=== PATIENT | male | born 2000 | race Two or more races ===

== ENCOUNTER 2021-05-16 22:00 | Emergency (ER) | payer BC ==
--- NOTE | 2021-05-16 23:38 | EDM.PDOCBH ---
ED HPI GENERAL MEDICAL PROBLEM - General Chief Complaint: Behavioral/Psych Stated Complaint: MEDICAL CLEARANCE Time Seen by Provider: 05/16/21 23:15 Source of Information: Reports: Patient, Police History Limitations: Reports: No Limitations - History of Present Illness INITIAL COMMENTS - FREE TEXT/NARRATIVE: Abisai is a 20-year-old male brought in for medical clearance for admission into [facility]. Patient was seen at the roadside by patrol police lieutenant earlier this evening and expressed to the officer that he was contemplating self-harm. Timothy confirmed that he had a gun in his car. This was secured by the police. Timothy has been through recent bout of extra stresses recently had . He has autism disorder depression disorder and OCD disorder. He is otherwise fairly healthy. He takes Paxil. Also uses marijuana for his anxiety. He reports no tobacco alcohol usage. He is originally from [place] moved to the [place] area in March 2020. Onset: Today Onset Date: 05/16/21 Duration: Hour(s):, Getting Worse Location: Reports: Generalized (Self-harm) Severity: Severe Improves with: Reports: None Worsens with: Reports: None Associated Symptoms: Reports: No Other Symptoms - Related Data Allergies Allergy/AdvReac Type Severity Reaction Status Date / Time amoxicillin Allergy Hives Verified 05/16/21 22:48 ED ROS GENERAL - Review of Systems Review Of Systems: See Below Constitutional: Reports: No Symptoms HEENT: Reports: No Symptoms Respiratory: Reports: No Symptoms Cardiovascular: Reports: No Symptoms Endocrine: Reports: No Symptoms GI/Abdominal: Reports: No Symptoms : Reports: No Symptoms Musculoskeletal: Reports: No Symptoms Skin: Reports: No Symptoms Neurological: Reports: No Symptoms Psychiatric: Reports: Depression, Suicidal Ideation Hematologic/Lymphatic: Reports: No Symptoms Immunologic: Reports: No Symptoms ED EXAM, BEHAVIORAL HEALTH - Physical Exam Exam: See Below Exam Limited By: No Limitations General Appearance: Alert, WD/WN, No Apparent Distress Eye Exam: Bilateral Eye: EOMI, PERRL (Pulls are equal) Ears: Hearing Grossly Normal Nose: Normal Inspection, Normal Mucosa, No Blood Throat/Mouth: Normal Inspection, Normal Lips, Normal Teeth, Normal Oropharynx, Normal Voice, No Airway Compromise Head: Atraumatic, Normocephalic Neck: Normal Inspection, Supple, Non-Tender, Full Range of Motion Respiratory/Chest: No Respiratory Distress, Lungs Clear, Normal Breath Sounds, No Accessory Muscle Use Cardiovascular: Normal Peripheral Pulses, Regular Rate, Rhythm, No Murmur GI/Abdominal: Soft, Non-Tender Back Exam: Normal Inspection, Full Range of Motion Extremities: Normal Inspection, Normal Range of Motion, No Pedal Edema Neurological: Alert, CN II-XII Intact, Normal Cognition, Normal Gait, No Motor/Sensory Deficits, Oriented x 3 Psychiatric: Alert, Oriented, Depressed Mood, Suicidal Thoughts. No: Tearful, Agitated Skin Exam: Warm, Dry, Intact, Normal color, No rash COURSE, BEHAVIORAL HEALTH COMP - Course Vital Signs: Last Vital Signs Temp 97.0 F 05/16/21 22:53 Pulse 64 05/16/21 22:53 Resp 16 05/16/21 22:53 BP 126/63 05/16/21 22:53 Pulse Ox 94 L 05/16/21 22:53 Orders, Labs, Meds: Active Orders 24 hr Category Date Time Status Suicide Precautions [RC] .Per Facility Policy Care 05/16/21 23:43 Active Blood Alcohol [ETHANOL BLOOD MEDICAL] [CHEM] Stat Lab 05/16/21 23:35 Received Laboratory Tests 05/16/21 Range/Units 23:30 Urine Opiates Screen Negative (NEGATIVE) Ur Oxycodone Screen Negative (NEGATIVE) Urine Methadone Screen Negative (NEGATIVE) Ur Propoxyphene Screen Negative (NEGATIVE) Ur Barbiturates Screen Negative (NEGATIVE) Ur Tricyclics Screen Negative (NEGATIVE) Ur Phencyclidine Scrn Negative (NEGATIVE) Ur Amphetamine Screen Negative (NEGATIVE) U Methamphetamines Scrn Negative (NEGATIVE) U Benzodiazepines Scrn Negative (NEGATIVE) U Cocaine Metab Screen Negative (NEGATIVE) U Marijuana (THC) Screen Positive H (NEGATIVE) Re-Assessment/Re-Exam: Patient is cooperative on examination he is not agitated. Answers questions appropriately. He does report severe depression and self-harm thoughts. Departure - Departure Time of Disposition: 23:42 Disposition: DC/Tfer to Psych Hosp/Unit [facility] Condition: Good Clinical Impression: Self-harming behavior Depression Qualifiers: Depression Type: unspecified Qualified Code(s): F32.A - Depression, unspecified - Discharge Information Forms: ED Department Discharge Sepsis Event Note (ED) - Evaluation Sepsis Screening Result: No Definite Risk - Focused Exam Vital Signs: Vital Signs Temp Pulse Resp BP Pulse Ox 05/16/21 22:53 97.0 F 64 16 126/63 94 L - My Orders Last 24 Hours: My Active Orders 05/16/21 23:35 Blood Alcohol [ETHANOL BLOOD MEDICAL] [CHEM] Stat 05/16/21 23:43 Suicide Precautions [RC] .Per Facility Policy - Assessment/Plan Last 24 Hours: My Active Orders 05/16/21 23:35 Blood Alcohol [ETHANOL BLOOD MEDICAL] [CHEM] Stat 05/16/21 23:43 Suicide Precautions [RC] .Per Facility Policy Assessment:: Severe depression Self-harm thoughts History of autism History of OCD Well general health physical examination Plan: Abisai is cleared to be taken to the [facility]. He will be transferred in by police. No contraindications for admission.
[2021-05-16 23:55] LABS: BARBITURATE SCREEN,URINE NEGATIVE (NEGATIVE); BENZODIAZEPINES SCREEN,URINE NEGATIVE (NEGATIVE); TCA SCREEN,URINE NEGATIVE (NEGATIVE); THC SCREEN,URINE 50 NG/ML POSITIVE (NEGATIVE)
== END 2021-05-17 00:30 ==
LOC: KA.ED 22:00
DX: F32.A Depression, unspecified (principal); Z88.0 Allergy status to penicillin
CPT/HCPCS: 36415; 80305-QW; 80307; 99283; 99285